=== PATIENT | female | born 1940 | race Caucasian/White ===

== ENCOUNTER 2017-01-01 23:13 | Inpatient (IN) | payer OTHER ==
--- NOTE | ~2017-01-01 | CR63 ---
[facility] A Service of [facility] RADIOLOGY TEXT RESULTS PATIENT: KITTY GASTON LOCATION: [facility] : 38 UNIT #: [id number] AGE: [address]: Scotty Rosa MD SEX: F ORDER DR: [id number] [place] [id number] [facility]. [place], [place] [address] [id number] I MR#: [id number] Acc #: [id number] NAME: KITTY GASTON. : 1940 SEX: F STUDY DATE/TIME: 01/06/2017 7:37 [facility]: [facility] STUDY DESCRIPTION: CR Chest 2 View Attending Physician: Scotty Rosa M.D. Ordering Physician: Physician Non-Staff Primary Care Physician: Manav Agosto Jr., M.D. MEDICAL IMAGING REPORT This report is preliminary unless electronic signature is present EXAM Two-view chest HISTORY Shortness of air, cough since 01/01/2017 COMPARISON 01/01/2017 FINDINGS 2 views of the chest demonstrates marked hyperinflation hyperlucency compatible with underlying emphysema. Slight blunting of both CP angles could represent a trace amount of effusion or pleural thickening. No focal airspace disease or consolidation. The heart and mediastinum unremarkable except for calcified mediastinal nodes consistent with prior granulomatous disease. Osseous structures unremarkable. IMPRESSION Moderate to severe emphysema with possible trace bilateral effusions. No focal airspace disease or consolidation. Dictated by... Kaylynn Brown M.D. THIS IS AN ELECTRONICALLY VERIFIED REPORT Kaylynn Brown M.D. at 01/06/2017 12:26 PM SAMANTHA/marta TD: 01/06/2017 09:22 JOB #: [id number] [facility] A Service of [facility] RADIOLOGY TEXT RESULTS PATIENT: KITTY GASTON LOCATION: [facility] 316 : 38 UNIT #: [id number] AGE: [address]: Scotty Rosa MD SEX: F ORDER DR: MEDICAL IMAGING REPORT Page 1 of 1 COPY
--- NOTE | ~2017-01-01 | CT57 ---
[facility] A Service of [facility] & [facility] RADIOLOGY TEXT RESULTS PATIENT: KITTY GASTON LOCATION: [facility] 316- : 38 UNIT #: [id number] AGE: [address]: Scotty Rosa MD SEX: F ORDER DR: [id number] [facility] [address] [place], [place] [address] [id number] I MR#: [id number] Acc #: [id number] NAME: KITTY GASTON. : 1940 SEX: F STUDY DATE/TIME: 01/02/2017 10:39 UNIT: C3A PCU ROOM: [facility] STUDY DESCRIPTION: CT Chest Wo Cont Attending Physician: Regis Newman M.D. Ordering Physician: Gordon Mas M.D. Primary Care Physician: Manav Agosto Jr., M.D. MEDICAL IMAGING REPORT This report is preliminary unless electronic signature is present EXAM CT chest without IV contrast COMPARISON None INDICATIONS 76-year-old female with dyspnea and cough for 1 day. History of COPD. TECHNIQUE Axial CT imaging of the chest was performed. Coronal and sagittal reformats were constructed. Lack of IV contrast limits evaluation of adenopathy, vasculature and viscera. This CT exam was performed with one or more of the following radiation dose reduction techniques: automatic control, adjustment of mA and/or kV according to patient size, and iterative reconstruction. FINDINGS There is jugular venous distension in the right lower neck. There is diffuse osteopenia. No acute fractures or suspicious osseous lesions. Imaging was performed in the expiratory phase. Airways appear widely patent. There is interlobular smooth septal thickening, most consistent with interstitial edema in the lungs. There is minimal bronchovascular ground-glass distribution opacity in the lingula and right middle lobe, however perhaps representing mildly asymmetric edema. There is a small fat-containing Bochdalek hernia in the right chest. There is normal heart size. There is trace pleural fluid in the posterior left costophrenic sulcus. No pneumothorax. There are calcified mediastinal and left hilar lymph nodes as well as a calcified granuloma seen in the left lower lobe and spleen. Detailed evaluation of the lungs is somewhat limited by motion artifact. The ground-glass attenuation seen within the lingula and right middle lobe may in part be artifactually related to motion. There is a dense calcification of the thoracic aorta extending into the STS. [facility] A Service of [facility] & [facility] RADIOLOGY TEXT RESULTS PATIENT: KITTY GASTON LOCATION: A 316-01 : 38 UNIT #: [id number] AGE: [address]: Scotty Rosa MD SEX: F ORDER DR: suprarenal abdominal aorta. There is normal caliber of the thoracic aorta and the pulmonary artery. There are a few subcentimeter AP window lymph nodes, not pathologic enlarged by CT size criteria and likely reactive. There are left-sided coronary artery calcifications. There are calcifications involving the proximal celiac, superior mesenteric and bilateral renal arteries. The left adrenal gland is diffusely calcified, consistent with prior infarct. In the right kidney there is a simple cyst versus angiomyolipoma measuring up to 1.3 cm. This does not have any evidence of acute hemorrhage. IMPRESSION 1. Jugular venous distension in the right lower neck. There is trace pleural fluid in the left posterior costophrenic sulcus. 2. There is smooth interlobular septal thickening throughout the lungs suggesting mild interstitial edema. There appear to be diffuse ground-glass opacities within the lingula and right middle lobe which may be in part artifactually related to motion or reflective of mildly asymmetric pulmonary edema. 3. Coronary artery calcifications as well as diffuse arterial calcifications within the abdomen and pelvis. 4. Diffuse calcification of the left adrenal gland consistent with remote infarct. Dictated by... Salomon Miranda M.D. THIS IS AN ELECTRONICALLY VERIFIED REPORT Salomon Miranda M.D. at 01/05/2017 12:28 AM ANNIE/rosetta TD: 01/03/2017 02:02 JOB #: [id number] MEDICAL IMAGING REPORT Page 1 of 1 COPY
--- NOTE | ~2017-01-01 | DS ---
Unit #: [id number] #: [id number] Patient: KITTY GASTON [id number] [address] [address] [id number] I MR#: [id number] NAME: KITTY GASTON. ROOM: 316 Age: 76 Sex: F Admission Date: 01/02/2017 : 1940 Discharge Date: 01/06/2017 Attending Physician: Scotty Rosa M.D. Primary Care Physician: Manav Agosto Jr., M.D. DISCHARGE SUMMARY DISCHARGE DIAGNOSES 1. Acute on chronic hypoxic respiratory failure secondary to chronic obstructive pulmonary disease and congestive heart failure. 2. Acute chronic obstructive pulmonary disease exacerbation, treated with IV Solu-Medrol and we tapered her on prednisone. 3. Acute diastolic heart failure in a newly diagnosed heart failure patient, but diuresed well, will be discharged on Lasix 40 mg orally daily. 4. Chronic iron deficiency anemia. We will be recommending iron replacement. H and H have been stable during hospitalization. 5. Diarrhea. C difficile has been negative. CONSULTANTS None. PROCEDURES None. DIAGNOSTIC STUDIES IMAGING STUDIES: Chest x-ray on 01/01/2017, impression, chronic interstitial fibrosis and scarring, probable interval progression of . No dense consolidation or effusion or pneumothorax. CT without contrast, 01/02/2017; impression, jugular venous distention in the right lower neck. Trace pleural fluid in the left posterior costophrenic sulcus, smooth interlobular septal thickening throughout the lungs consistent with mild interstitial edema and there is ground-glass opacities within the lingula and middle lobe. Coronary artery calcification as well as diffuse arterial calcifications within the abdomen and pelvis, diffuse calcification of the left adrenal gland with remote infract. CT 2 view x-ray on 01/06/2017, impression, [id number] emphysema with possible trace bilateral effusions. No focal airspace disease or consolidation. CARDIOVASCULAR STUDIES: Echo also done on 01/03/2017, summary, left ventricular size is normal. Normal left ventricular wall thickness and impaired relaxation of the grade 1 diastolic dysfunction. Globally, normal left ventricular systolic function, ejection fraction estimated at 65%. Normal right ventricular size and function. Mild mitral and tricuspid regurgitation. LABORATORY RESULTS: On the day of discharge, BMP: Glucose 149, BUN 23, creatinine 0.8, sodium 139, potassium 4.0, chloride 91, CO2 of 40, magnesium 2.8, calcium 8.4, total protein 6.9, albumin 3.7, total bilirubin 0.5, AST 46, ALT 27, alkaline phosphatase 65. CBC: WBC 8.1, Unit #: [id number] #: [id number] Patient: KITTY GASTON RBC 8.90, hemoglobin 10.6, hematocrit 33.3, MCV 85.3, MCH 27.1, MCHC 31.7, RDW 15.4, platelets 331, MPV 9.7. HOSPITAL COURSE The patient is a pleasant 76-year-old female with past medical history of chronic hypoxemic respiratory failure, who presented to the emergency department due to symptoms of shortness of breath. The patient was seen in the emergency department a day prior to admission for fever and state that since then she has had worsening of shortness of breath and cough. The patient was found in the emergency department to have a temperature of 102. She was tachypneic and placed on oxygen. First that remained stable in the low 90s. Of note, she does use oxygen at home at 2 L a minute. She denied any sick contacts at home. 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 In the emergency department, she did receive IV antibiotics and started on steroid and DuoNeb. Influenza was negative. She was admitted for acute COPD exacerbation with acute on chronic hypoxic respiratory failure. She had been receiving IV steroid, DuoNeb for her bronchodilators and mucolytics for the CHF exacerbation. We did assess the BNP, which is actually 704. it is truly difficult to appreciate peripheral edema, but she did have some jugular venous distention. CT echo was obtained with findings as noted above. We did diurese the patient with Solu-Medrol. She has been diuresing well with improvement in her symptoms of shortness of breath and dyspnea on exertion. She was seen in consultation with occupational and physical therapy who states that the patient has and the patient has been ambulating well with physical therapy. At this time, the patient is stable. She is back to oxygen at 2 L of minute. She has had much improvement of dyspnea on exertion. She is stable to be discharged home. DISCHARGE INSTRUCTIONS Follow up with primary care physician within 1 to 2 weeks. She can get a recheck on her BNP. DISCHARGE CONDITION Stable. DISCHARGE ACTIVITY Resume activities as well as prior to hospitalization with ambulating everyday as tolerated. DIET Resume a heart healthy diet. DISCHARGE MEDICATIONS Ventolin 2 puffs inhaled q.i.d. as needed for shortness of breath and/or wheezing; Symbicort 2 puffs inhaled b.i.d.; prednisone 30 mg orally for the next 3 days, 20 mg orally for the next 3 days, and 10 mg orally for the next 3 days; Tylenol 1 to 2 capsule every 4 hours as needed for headache; Spiriva inhaler 1 capsule orally daily; meclizine 25 mg orally t.i.d. as needed for dizziness; iron tablet 324 mg orally daily; Nexium 40 mg orally daily; Levaquin 750 mg orally for the next 3 days. Dictated by... Mone Gray PA-C for Pedro Flores/allen Unit #: [id number] #: [id number] Patient: KITTY GASTON TD: 01/07/2017 01:00 JOB #: [id number] DISCHARGE SUMMARY Page 1 of 1 X X DISCHARGE SUMMARY
--- NOTE | ~2017-01-01 | CR72 ---
[facility] A Service of [facility] RADIOLOGY TEXT RESULTS PATIENT: KITTY GASTON LOCATION: [facility] 316-01 : 38 UNIT #: [id number] AGE: [address]: Regis Agarwal MD SEX: F ORDER DR: [id number] [facility] [address] [place], [place] [address] [id number] I MR#: [id number] Acc #: [id number] NAME: KITTY GASTON. : 1940 SEX: F STUDY DATE/TIME: 01/01/2017 22:33 UNIT: [address] ROOM: [facility] STUDY DESCRIPTION: CR Chest Single View Portable Attending Physician: Regis Newman M.D. Ordering Physician: Arash Corley M.D. Primary Care Physician: Manav Agosto Jr., M.D. MEDICAL IMAGING REPORT This report is preliminary unless electronic signature is present EXAM Frontal chest 01/01/2017 INDICATIONS A 76-year-old female with low O2 sat, shortness of air, symptoms began today TECHNIQUE Frontal chest was performed compared with 11/08/09. FINDINGS Cardiac silhouette is within normal limits. Vascularity is unremarkable. The patient demonstrates old healed granulomatous disease and imaging features most characteristic of chronic interstitial fibrosis and scarring. Since the prior 2009 study, there has been probable interval progression of scarring and fibrosis in the mid and lower lung zones. It would be possible to exclude an element of acute infiltrate in either lower lobe particularly on the right. This should be correlated with physical exam findings. No effusion, dense consolidation or pneumothorax. IMPRESSION Chronic interstitial fibrosis and scarring. Probable interval progression of fibrosis and scarring from 2009 although possibility in the differential also includes new faint interstitial infiltrates particularly on the right. Correlate with physical exam findings. There is no dense consolidation or effusion, and no pneumothorax. Dictated by... Mynor Beltran M.D. THIS IS AN ELECTRONICALLY VERIFIED REPORT [facility] A Service of [facility] RADIOLOGY TEXT RESULTS PATIENT: KITTY GASTON LOCATION: [facility] 316-01 : 38 UNIT #: [id number] AGE: [address]: Regis Agarwal MD SEX: F ORDER DR: Mynor Beltran M.D. at 01/02/2017 10:14 PM Honey TD: 01/02/2017 12:31 JOB #: [id number] MEDICAL IMAGING REPORT Page 1 of 1 COPY
--- NOTE | ~2017-01-01 | A ---
[facility] Nutrition Therapy DATE: 01/02/17 Patient: KITTY GASTON Physician: CARMEN Address: [facility] [email or web address] Room/Bed: [address] [place] [address], Zip: [place] [address] Admit Date: 01/02/17 Date of : 38 Height: 5 2 Weight: 100 45.4 NUTRITIONAL ASSESSMENT: REASON: LOW BMI (18.3), C/S- "NUTRITION CONSULT" PATIENT ADMITTED FOR PNA AND COPD PMH: GERD, IBS, HX GASTRIC ULCER Anthropometrics: HT: 5'2", WT: 100#, BMI: 18.3, %IBW: 91 Labs: 01/02/17- GLU: 148, CA: 8.1, AST: 46 Meds: NACL, VANCOCIN, KCL, ZOSYN I/O & Bowel function: 240/-- Skin Integrity: INTACT Estimated Nutrition Needs: INCREASED 2' LOW BMI Assessment: CHART REVIEWED, EVENTS NOTED. PATIENT IS A 76 Y/O FEMALE ADMITTED FOR PNA AND COPD. PATIENT STATES SHE HAS AN OKAY APPETITE AND HER UBW IS 105-106#. PER PATIENT AND A FAMILY MEMBER AT BEDSIDE, HER 5# WEIGHT LOSS OCCURRED 2 MONTHS AGO WHEN SHE LAST HAD PNEUMONIA. SHE DRINKS ORAL NUTRITION SUPPLEMENTS AT HOME, USUALLY 1 PER DAY. SHE DOES NOT HAVE ANY C/O V/N/C/D. PATIENT IS A DAILY SMOKER AND SHE DOES NOT HAVE ANY SKIN BREAKDOWN OR EDEMA NOTED ATT. THIS RD DISCUSSED THE IMPORTANCE OF HIGH CALORIE, HIGH PROTEIN FOOD CHOICES. PATIENT DID NOT HAVE ANY NUTRITION EDUCATION QUESTIONS ATT. RECOMMEND TO CONTINUE WITH ORAL NUTRITION SUPPLEMENTATION. Dx: INADEQUATE NUTRIENT INTAKE R/T CURRENT CONDITION, PNA AEB WEIGHT LOSS, LOW BMI Intervention: 1. REGULAR DIET, 2. MEDS/FLUIDS PER MD, 3. SUPPLEMENTATION Monitoring, Evaluation and Goals: 1. ADEQUATE PO INTAKES >50% OF MEALS 2. PREVENT, CORRECT MICRO/MACRO NUTRIENT DEFICIENCIES 3. PROMOTE A STEADY WEIGHT GAIN TOWARDS A HEALTHY BMI OF 19-25, PREVENT FURTHER WEIGHT LOSS MONITOR: WEIGHTS, LABS, PO/FLUID INTAKES [facility] Nutrition Therapy DATE: 01/02/17 Patient: KITTY GASTON Physician: CARMEN Address: [address] [place], [place] [address] Room/Bed: [address] [place] [address], Zip: [place] [id number] Admit Date: 01/02/17 Date of : 38 Height: 5 2 Weight: 100 45.4 Recommendations: 1. CONTINUE WITH REGULAR DIET TOLERATED. RECOMMEND ADDING CHOCOLATE ENSURE BID WITH BREAKFAST AND LUNCH, AND CHOCOLATE MAGIC CUPS BID WITH LUNCH AND DINNER TO PROMOTE ADEQUATE KCAL AND PROTEIN INTAKE. 2. ENCOURAGE ADEQUATE PO AND FLUID INTAKES 3. OBTAIN WEIGHT ROUTINELY (EVERY 2-3 DAYS) RD TO F/U PER PROTOCOL AND PRN R/T PATIENT MILDLY COMPROMISED Respectfully, MOSES MORALES, RD, LD [employer] [facility] cc: client file
--- NOTE | ~2017-01-01 | HP ---
Unit #: [id number] #: [id number] Patient: KITTY GASTON [id number] [address] [address] [id number] I MR#: [id number] NAME: KITTY GASTON ROOM: 316 Age: 76 Sex: F Admission Date: 01/02/2017 : 1940 Attending Physician: Regis Newman M.D. Primary Care Physician: Manav Agosto Jr., M.D. HISTORY AND PHYSICAL CHIEF COMPLAINT/REASON FOR ADMISSION Shortness of breath. HISTORY OF PRESENT ILLNESS Ms. Gaston is a 76-year-old, female who presented to the emergency room complaining of 1 day of fever, worsening shortness of breath, and cough. Patient was found in the emergency room to have a temperature of 102. She was tachypneic and was immediately placed on oxygen. Her sats remained in the low 90s. She denies any sick contacts at home. The patient has a history of COPD and has not followed with any price clerk. The patient has oxygen at home that she uses at 2 liters a day and has been on it for approximately 4-6 months, according to her. In the ER, the patient received antibiotics as well as was started on steroids and DuoNebs. Influenza test was negative and this morning the patient feels with some improvement in her symptoms. She denies any nausea or vomiting. No diarrhea or constipation. She is a little sleepy this morning and does not cooperate much with the evaluation. No family is available at this time. PAST MEDICAL HISTORY Significant for COPD. ALLERGIES Sulfa and hydrocodone. FAMILY HISTORY No history of cancer or heart disease in her family. SOCIAL HISTORY The patient lives with her . She quit smoking approximately 8 years ago, but used to smoke prior to that, approximately 1-2 packs a day for several years. Drinks alcohol a little more than once a week according to her. Denies any drug use. SURGICAL HISTORY 1. Left shoulder bone spur. 2. Hysterectomy. 3. Appendectomy. 4. Left hand surgery. 5. Left knee arthroplasty. 6. Tonsillectomy. 7. Cyst removed from the left kidney. HOME MEDICATIONS Unit #: [id number] #: [id number] Patient: KITTY GASTON 1. Spiriva. 2. Ventolin. 3. Symbicort. 4. Nexium. 5. Meclizine. 6. Oxygen. REVIEW OF SYSTEMS Significant for some weight loss, but the patient does not quantify; cough; shortness of breath; generalized weakness; lightheadedness; and a decreased appetite. Otherwise, a 12-point review of systems was negative, except for what was mentioned in the HPI. PHYSICAL EXAMINATION VITAL SIGNS: Temperature on arrival to the emergency room 102.3, heart rate 107, respiratory rate 24, blood pressure 126/55, and weight 100 pounds. Currently, the patient's temperature is 98.3, heart rate 85, respiratory rate 16, blood pressure 142/74, and oxygen saturation is 95% on 3 liters of oxygen. GENERAL APPEARANCE: She is a thin, female, a little sleepy, in no acute distress with oxygen per nasal cannula. HEENT: Pupils are equal and reactive to light and accommodation. Conjunctivae are pink. Moist mucous membranes. No oral lesions. CHEST: Bibasilar crackles. CARDIOVASCULAR: Regular rate and rhythm. No murmurs. ABDOMEN: Bowel sounds are present and normal. The abdomen is soft, nontender, and nondistended. EXTREMITIES: No edema. NEURO: She is awake, alert, and oriented x3. Again, she is a little sleepy, but easily arousable. DIAGNOSTIC STUDIES LABORATORY: Lactic acid on arrival was 1. CBC showed a WBC count of 5.2, hemoglobin of 10.2, and platelets of 240. Sodium was 139, potassium 4.2, CO2 35, glucose 147, creatinine 0.8, calcium at 8.7, AST 46, and ALT 27. Otherwise, liver tests were within normal limits. ASSESSMENT AND PLAN Ms. Gaston is a 76-year-old, female with a history of COPD with 1 day of fever, shortness of breath, and cough with chest x-ray that shows bibasilar infiltrates concerning for progression of fibrosis when compared to a chest x-ray from 2010. There was also concern for, perhaps, new interstitial infiltrate on the right lower lobe. Because of these findings, the patient is now admitted to hospital. 1. Community-acquired pneumonia: Will continue with antibiotics. Patient was started on vancomycin, Zosyn, and tobramycin. Lactic acid is normal. Will follow blood cultures. Will obtain UA and cultures too. 2. Acute exacerbation of COPD: Will start the patient on DuoNebs p.r.n. and continue on scheduled Combivent as she was using at home. Will deescalate the dose of her steroids to 60 mg 3 times a day. Will restart her home regimen with Spiriva and Symbicort. 3. Malnutrition: The patient seems to be very debilitated and with some weight loss. Will get nutrition on board. 4. History of acid reflux: Will keep the patient on PPIs. 5. Concern for pulmonary fibrosis: Will get a CT scan of the chest (1) and consider pulmonary consult. Unit #: [id number] #: [id number] Patient: KITTY GASTON 6. DVT prophylaxis: Will keep the patient on Lovenox. Dictated by Pedro Masters/cheng TD: 01/02/2017 13:19 JOB #: [id number] HISTORY AND PHYSICAL Page 1 of 1 X X HISTORY AND PHYSICAL
--- NOTE | ~2017-01-01 | EKG ---
PATIENT: KITTY GASTON UNIT #: [id number] Ventricular Rate: 92 BPM Atrial Rate: 92 BPM P-R Interval: 142 ms QRS Duration: 80 ms Q-T Interval: 376 ms QTC Calculation(Bezet): 464 ms P [place]: 85 degrees Calculated R [place]: 75 degrees Calculated T [place]: 54 degrees Diagnosis Line: Sinus rhythm with Premature atrial complexes Diagnosis Line: Otherwise normal ECG Diagnosis Line: When compared with ECG of 02-JAN-2017 00:23, Diagnosis Line: (unconfirmed) Diagnosis Line: Premature atrial complexes are now Present Diagnosis Line: Confirmed by KIMBERLY MCCARTNEY MD ([id number]) on 01/04/2017 Diagnosis Line: 10:49:16 PM INTERPRETING MD: BIB WAN
[2017-01-01 22:45] LABS: POC - CKMB 1.3 ng/mL (0.0-7.9); POC - TROPONIN 0.05 ng/mL (<=0.05)
[2017-01-01 22:48] LABS: BASOPHIL% 0.9 % (0-2.5); EOSINOPHIL% 0.1 % (0.0-7.0); HEMATOCRIT 32.5 % (35.0-45.0); HEMOGLOBIN 10.2 gm/dL (12.0-16.0); LYMPHOCYTE# 1.5 X10e3 (1.0-3.5); LYMPHOCYTE% 29.6 % (17.0-45.0); MEAN CELL VOLUME 86.5 FL (83-96); MEAN CORPUSCULAR HEMOGLOBIN 27.2 PG (28-34); MEAN CORPUSCULAR HGB CONC 31.5 g/dL (30-36); MEAN PLATELET VOLUME 9.6 FL (6.5-11.5); MONOCYTE# 0.5 X10e3 (0-1.0); MONOCYTE% 9.1 % (3.0-12.0); NEUTROPHIL# 3.1 X10e3 (1.5-7.1); NEUTROPHIL% 60.3 % (40-75); PLATELET COUNT 240 X10e3 (140-420); RED BLOOD COUNT 3.76 X10e (3.90-5.30); RED CELL DISTRIBUTION WIDTH 15.4 % (11.0-15.5); WHITE BLOOD COUNT 5.2 X10e3 (4.0-10.5)
[2017-01-01 22:53] LABS: DIFF IND NO
[2017-01-01 23:02] LABS: PARTIAL THROMBOPLASTIN TIME 25.2 SECONDS (23.5-31.3); PROTHROMBIN TIME (PATIENT) 10.5 SECONDS (9.6-11.5)
[2017-01-01 23:10] LABS: ALBUMIN SERUM 3.7 g/dL (3.5-5.0); BILIRUBIN, DIRECT 0.1 mg/dL (0.0-0.2); BILIRUBIN,INDIRECT 0.4 mg/dL (0.0-0.9); BILIRUBIN,TOTAL 0.5 mg/dL (0.2-2.0); BUN/CREATININE RATIO 16.25; CALCIUM SERUM 8.7 mg/dL (8.4-10.2); CREATININE SERUM 0.8 mg/dL (0.6-1.4); GLOM FILT RATE Estimated 70.7 mL/min (>60); POTASSIUM 4.2 mmol/L (3.5-5.1); PROTEIN TOTAL SERUM 6.9 g/dL (6.0-8.3)
[2017-01-01 23:11] LABS: INFLUENZA A NEG (NEG); INFLUENZA B NEG (NEG)
[~2017-01-01 23:13] MED LIST: ACETAMINOPHEN PO; ACETAMINOPHEN500 M2 PO; ALBUTEROL 0.5ML INH; ALBUTEROL INHALER; ALBUTEROL17 GM INH; ATIVAN PO; BONIVA150 MG PO; BROVANA15 MCG/2 M IH; IBUPROFEN; MOTION RELIEF25 MG PO; NEXIUM; NEXIUM PO; OXYGEN; SPIRIVA18 MCG INH; SPIRIVA18 MCG PO; SYMBICORT INH; TRAMADOL HCL50 M1 PO; ULTRAM PO; UNKNOWN PAIN MED; [UNRECOGNIZED DRUG - OTHER]; [UNRECOGNIZED DRUG - REMARK]
[2017-01-02 00:49] LABS: POC - CKMB <1.0 ng/mL (0.0-7.9); POC - TROPONIN 0.05 ng/mL (<=0.05)
[2017-01-02 02:21] LABS: BASOPHIL% 0.5 % (0-2.5); EOSINOPHIL% 0.1 % (0.0-7.0); HEMATOCRIT 30.1 % (35.0-45.0); HEMOGLOBIN 9.5 gm/dL (12.0-16.0); LYMPHOCYTE# 1.4 X10e3 (1.0-3.5); LYMPHOCYTE% 25.1 % (17.0-45.0); MEAN CELL VOLUME 86.2 FL (83-96); MEAN CORPUSCULAR HEMOGLOBIN 27.2 PG (28-34); MEAN CORPUSCULAR HGB CONC 31.5 g/dL (30-36); MEAN PLATELET VOLUME 9.4 FL (6.5-11.5); MONOCYTE# 0.1 X10e3 (0-1.0); MONOCYTE% 2.5 % (3.0-12.0); NEUTROPHIL# 3.9 X10e3 (1.5-7.1); NEUTROPHIL% 71.8 % (40-75); PLATELET COUNT 215 X10e3 (140-420); RED BLOOD COUNT 3.49 X10e (3.90-5.30); RED CELL DISTRIBUTION WIDTH 15.3 % (11.0-15.5); WHITE BLOOD COUNT 5.4 X10e3 (4.0-10.5)
[2017-01-02 02:23] LABS: DIFF IND NO
[2017-01-02 02:56] LABS: BUN/CREATININE RATIO 15.55; CALCIUM SERUM 8.1 mg/dL (8.4-10.2); CREATININE SERUM 0.9 mg/dL (0.6-1.4); GLOM FILT RATE Estimated 61.3 mL/min (>60); POTASSIUM 4.1 mmol/L (3.5-5.1)
[2017-01-02 20:28] LABS: URINE SOURCE CLEAN CATCH
[2017-01-02 20:48] LABS: URINE APPEARANCE CLEAR; URINE BILIRUBIN NEG (NEG); URINE BLOOD NEG (NEG); URINE COLOR YELLOW; URINE GLUCOSE NEG (NEG); URINE KETONE NEG (NEG); URINE LEUKOCYTE ESTERASE NEG (NEG); URINE NITRATE NEG (NEG); URINE PH 5.5 (5-8); URINE PROTEIN TRACE (NEG); URINE SPECIFIC GRAVITY 1.021 (1.003-1.035); URINE UROBILINOGEN 0.2 MG/DL (NEG)
[2017-01-03 06:04] LABS: HEMATOCRIT 28.4 % (35.0-45.0); HEMOGLOBIN 8.8 gm/dL (12.0-16.0); MEAN CORPUSCULAR HEMOGLOBIN 27.1 PG (28-34); MEAN CORPUSCULAR HGB CONC 31.1 g/dL (30-36); RED BLOOD COUNT 3.26 X10e (3.90-5.30); RED CELL DISTRIBUTION WIDTH 15.5 % (11.0-15.5)
[2017-01-03 06:18] LABS: WHITE BLOOD COUNT 8.5 X10e3 (4.0-10.5)
[2017-01-03 06:31] LABS: BUN/CREATININE RATIO 23.75; CALCIUM SERUM 7.7 mg/dL (8.4-10.2); CREATININE SERUM 0.8 mg/dL (0.6-1.4); GLOM FILT RATE Estimated 70.7 mL/min (>60); POTASSIUM 4.5 mmol/L (3.5-5.1)
[2017-01-04 06:39] LABS: DIFF IND NO; HEMATOCRIT 30.4 % (35.0-45.0); HEMOGLOBIN 9.6 gm/dL (12.0-16.0); LYMPHOCYTE# 1.1 X10e3 (1.0-3.5); LYMPHOCYTE% 9.7 % (17.0-45.0); MEAN CELL VOLUME 85.9 FL (83-96); MEAN CORPUSCULAR HEMOGLOBIN 27.2 PG (28-34); MEAN CORPUSCULAR HGB CONC 31.6 g/dL (30-36); MEAN PLATELET VOLUME 9.6 FL (6.5-11.5); MONOCYTE# 0.8 X10e3 (0-1.0); MONOCYTE% 7.4 % (3.0-12.0); NEUTROPHIL% 82.9 % (40-75); PLATELET COUNT 304 X10e3 (140-420); RED BLOOD COUNT 3.53 X10e (3.90-5.30); RED CELL DISTRIBUTION WIDTH 15.9 % (11.0-15.5); RETICULOCYTE 1.5 % (0.5-2.8); WHITE BLOOD COUNT 10.9 X10e3 (4.0-10.5)
[2017-01-04 07:28] LABS: BUN/CREATININE RATIO 21.25; CALCIUM SERUM 8.5 mg/dL (8.4-10.2); CREATININE SERUM 0.8 mg/dL (0.6-1.4); GLOM FILT RATE Estimated 70.7 mL/min (>60); MAGNESIUM 1.7 mg/dL (1.6-3.0); POTASSIUM 4.5 mmol/L (3.5-5.1)
[2017-01-04 07:40] LABS: FERRITIN 153 ng/mL (11-307)
[2017-01-05 08:11] LABS: HEMATOCRIT 33.7 % (35.0-45.0); HEMOGLOBIN 10.5 gm/dL (12.0-16.0); MEAN CELL VOLUME 86.6 FL (83-96); MEAN CORPUSCULAR HEMOGLOBIN 26.9 PG (28-34); MEAN CORPUSCULAR HGB CONC 31.1 g/dL (30-36); MEAN PLATELET VOLUME 9.6 FL (6.5-11.5); RED BLOOD COUNT 3.89 X10e (3.90-5.30); RED CELL DISTRIBUTION WIDTH 15.9 % (11.0-15.5); WHITE BLOOD COUNT 8.5 X10e3 (4.0-10.5)
[2017-01-05 09:01] LABS: CALCIUM SERUM 8.4 mg/dL (8.4-10.2); CREATININE SERUM 0.8 mg/dL (0.6-1.4); GLOM FILT RATE Estimated 70.7 mL/min (>60); MAGNESIUM 1.4 mg/dL (1.6-3.0); POTASSIUM 3.1 mmol/L (3.5-5.1)
[2017-01-06 05:15] LABS: HEMATOCRIT 33.3 % (35.0-45.0); HEMOGLOBIN 10.6 gm/dL (12.0-16.0); MEAN CELL VOLUME 85.3 FL (83-96); MEAN CORPUSCULAR HEMOGLOBIN 27.1 PG (28-34); MEAN CORPUSCULAR HGB CONC 31.7 g/dL (30-36); MEAN PLATELET VOLUME 9.7 FL (6.5-11.5); RED BLOOD COUNT 3.9 X10e (3.90-5.30); RED CELL DISTRIBUTION WIDTH 15.4 % (11.0-15.5); WHITE BLOOD COUNT 8.1 X10e3 (4.0-10.5)
[2017-01-06 06:11] LABS: BUN/CREATININE RATIO 28.75; CALCIUM SERUM 8.4 mg/dL (8.4-10.2); CREATININE SERUM 0.8 mg/dL (0.6-1.4); GLOM FILT RATE Estimated 70.7 mL/min (>60); MAGNESIUM 2.8 mg/dL (1.6-3.0)
[2017-01-06] MEDS ORDERED: FERROUS GL324 ( 36 ) PO (17:01)
[2017-01-06] MEDS ORDERED: LEVAQUIN750 M1 PO (17:02)
[2017-01-06] MEDS ORDERED: LASIX PO (17:04)
[2017-01-06] MEDS ORDERED: PREDNISONE10 MG/DOSE (17:04)
== END 2017-01-06 16:30 | disposition home or self-care (01) | DRG 291 ==
LOC: CED 23:13 → CEDOF 01-02 01:49 → C3A PCU 01-02 02:56
PROVIDERS: Emergency Medicine; Internal Medicine; Physician Assistant Medical
PROC: B246YZZ Ultrasonography of Right and Left Heart using Other Contrast (ICD-10-PCS; principal; 2017-01-03)
DX: I50.33 Acute on chronic diastolic (congestive) heart failure (principal); J96.21 Acute and chronic respiratory failure with hypoxia; J18.9 Pneumonia, unspecified organism; E46 Unspecified protein-calorie malnutrition; J44.1 Chronic obstructive pulmonary disease with (acute) exacerbation; Z68.1 Body mass index [BMI] 19.9 or less, adult; D50.9 Iron deficiency anemia, unspecified; R19.7 Diarrhea, unspecified; Z90.710 Acquired absence of both cervix and uterus; K21.9 Gastro-esophageal reflux disease without esophagitis; Z87.891 Personal history of nicotine dependence; Z96.652 Presence of left artificial knee joint
CPT/HCPCS: 36415; 71010; 71020; 71250; 80048; 80076; 80202; 81003; 82553; 82607; 82728; 83540; 83550; 83605; 83735; 83880; 84484; 85025; 85027; 85044; 85610; 85730; 87040; 87045; 87086; 87427; 87493; 87804; 87899; 93005; 93306; 94640; 94760; 96374; 97110; 97116; 97161; 97165; 97530; 97535; 99285; G8978-GP; G8979-GP; G8980-GP; G8987-GO; G8988-GO; J1650; J1940; J2543; J2920; J2930; J3260; J3370; J3475

== ENCOUNTER 2017-01-19 19:07 | Inpatient (IN) | payer MEDICARE, OTHER ==
--- NOTE | ~2017-01-19 | CR72 ---
[facility] A Service of [facility] RADIOLOGY TEXT RESULTS PATIENT: KITTY GASTON LOCATION: [facility] 56- : 38 UNIT #: [id number] AGE: [address]: Katherine Mcgee MD SEX: F ORDER DR: [id number] [facility] [address] [place], [place] [address] [id number] I MR#: [id number] Acc #: [id number] NAME: KITTY GASTON. : 1940 SEX: F STUDY DATE/TIME: 01/19/2017 19:11 UNIT: [facility] ROOM: [facility] STUDY DESCRIPTION: CR Chest Single View Portable Attending Physician: Jayda Sampson M.D. Ordering Physician: Lety Sanchez M.D. Primary Care Physician: Manav Agosto Jr., M.D. MEDICAL IMAGING REPORT This report is preliminary unless electronic signature is present EXAM Portable chest HISTORY Shortness of air, weakness times 4 days. COMPARISON 01/06/2017 FINDINGS A portable view of the chest demonstrates pulmonary hyperinflation hyperlucency compatible underlying emphysema. Hilar and parenchymal calcifications suggest old granulomas disease. Heart, great vessels bony thorax unremarkable for age. Overall emphysema but no acute findings Dictated by... Kaylynn Brown M.D. THIS IS AN ELECTRONICALLY VERIFIED REPORT Kaylynn Brown M.D. at 01/20/2017 3:33 PM Keith TD: 01/20/2017 07:04 JOB #: [id number] MEDICAL IMAGING REPORT Page 1 of 1 COPY
--- NOTE | ~2017-01-19 | CO ---
Unit #: [id number] #: [id number] Patient: KITTY GASTON [id number] [address] [place], [place] [address] [id number] I MR#: [id number] NAME: KITTY GASTON. ROOM: 562 Age: 76 Sex: F Admission Date: 01/19/2017 : 1940 Attending Physician: Katherine Mcgee M.D. Primary Care Physician: Manav Agosto Jr., M.D. Consultation Date: 01/21/2017 CONSULTATION REPORT BRIEF SUMMARY The patient is a 76-year-old white female with severe COPD, who was admitted with respiratory problems. She states over the past year or two, she has had significant weight loss and apparently lost approximately 30 pounds weight over the past couple of months. She has been in and out of the hospital with her pulmonary problems. She states that she has had some nausea with occasional vomiting and also has been anorexic at times. She is on prednisone as well as multiple other medications for her pulmonary problems. She had upper and lower endoscopy by Dr. Sharif gamez over 2 years ago and was noted to have on colonoscopy, a normal scope. On upper endoscopy, she was noted to have a small hiatal hernia and mild esophagitis. PAST MEDICAL HISTORY She has had a known past history for COPD, gastroesophageal reflux disease, and heart disease. She has had a known history for left shoulder surgery, colonoscopy and EGD as noted above, hysterectomy, appendectomy, left hand surgery, left knee surgery, tonsillectomy, and a cyst removed from the kidney. ALLERGIES She is allergic to sulfa and hydrocodone. MEDICATIONS She is on several medications including Zyrtec, iron sulfate, Lasix, oxygen per nasal cannula, Symbicort, Spiriva, Ventolin, Nexium, Levaquin, prednisone which was recently finished, and meclizine. FAMILY HISTORY Noncontributory. SOCIAL HISTORY The patient is . Lives at home with family. She is a nonsmoker. Nondrinker. REVIEW OF SYSTEMS Twelve system review has been performed, which is not remarkable except for that noted in the present illness. IMMUNIZATIONS Up-to-date. PHYSICAL EXAMINATION VITAL SIGNS: The patient is afebrile. Vital signs normal. Unit #: [id number] #: [id number] Patient: KITTY GASTON GENERAL: The patient is a well-developed thin 76-year-old white female, in no acute distress. HEENT: Not remarkable. NECK: Supple. CHEST: There is equal bilateral expansion with the use of intercostal muscles for breathing and increased AP diameter compatible with moderate to severe COPD. The lung sounds are clear, but distant in the in the bases. HEART: Regular rhythm. ABDOMEN: Soft, nontender, benign without palpable mass or organomegaly. There is no gross abdominal distention. No guarding or rebound. Active bowel sounds present. No evidence of ascites or hernias. EXTREMITIES: Full range of motion without limitation. No evidence of any peripheral edema. BACK: There is no CVA tenderness. NEUROLOGIC: Grossly intact. DIAGNOSTIC STUDIES IMAGING STUDIES: CT scan on this admission not remarkable. LABORATORY RESULTS: Laboratory values basically not remarkable. BUN was mildly elevated. IMPRESSION The patient has severe chronic obstructive pulmonary disease and cardiac disease along with weight loss possibly on the basis of her anorexia, which she has at this time upper endoscopy and possibly we will start her on Megace if indicated. Dictated by... Rodrigo Tadeo Jr., M.D. SANDER/allen TD: 01/22/2017 03:34 JOB #: [id number] CONSULTATION REPORT Page 1 of 1 X Rodrigo Tadeo MD X CONSULTATION REPORT
--- NOTE | ~2017-01-19 | DS ---
Unit #: [id number] #: [id number] Patient: KITTY GASTON [id number] [address] [place], [place] [address] [id number] I MR#: [id number] NAME: KITTY GASTON. ROOM: 562 Age: 76 Sex: F Admission Date: 01/19/2017 : 1940 Discharge Date: 01/22/2017 Attending Physician: Katherine Mcgee M.D. Primary Care Physician: Manav Agosto Jr., M.D. DISCHARGE SUMMARY DISCHARGE DIAGNOSES 1. Acute on chronic hypoxic respiratory failure, resolved. The patient is back to her oxygen at 2 liters a minute. 2. Acute chronic obstructive pulmonary disease exacerbation, on steroid orally. 3. Acute kidney injury due to Lasix usage, resolved. 4. Odynophagia, weight loss and increased carcinoembryonic antigen at 4.7. CA19-9 is pending. Seen by [facility]. The patient is having an esophagogastroduodenoscopy today. Results and recommendations pending per the esophagogastroduodenoscopy outcome. 5. History of diastolic heart failure. The patient had an echocardiogram last month with an ejection fraction of 65% with mild mitral regurgitation and tricuspid regurgitation, grade 1 diastolic dysfunction. The patient was not able to tolerate Lasix 40 milligrams orally daily; therefore, it will be changed to as needed. 6. Gastroesophageal reflux disease. 7. Chronic sinusitis. 8. Hypomagnesemia. CONSULTANTS 1. Dr. Kelsey of pulmonary. 2. Dr. Tadeo with [facility]. PROCEDURES The patient had an EGD on 01/22/2017. Please refer to the full dictated procedure note for further details. DIAGNOSTIC STUDIES IMAGING: Chest x-ray on 01/19/17. Findings - Hyperinflation, hyperlucency compatible with emphysema but no acute findings. Head CT on 01/19/17. Impression - No acute intracranial abnormality identified. Generalized atrophy with evidence of chronic microvascular disease. CT chest without contrast on 01/19/17. Impression - Severe emphysema. No acute intrathoracic abnormality identified. CT abdomen and pelvis, 01/20/17. Impression - No acute findings. No evidence of abdominal or pelvic malignancy. LABS: On day of discharge the patient's labs include BMP with glucose of 101, BUN 27, creatinine 0.8, sodium 144, potassium 4.1, chloride 95, CO2 39, calcium 9.1. CBC - WBC of 11.8, RBC 3.39, hemoglobin 9.2, hematocrit Unit #: [id number] #: [id number] Patient: KITTY GASTON H 29.7, MCV 87.7, MCH 27.2, MCHC 31, RDW 16.8, platelets 268, MPV 9.9. MICROBIOLOGY: Blood culture - No growth. HOSPITAL COURSE The patient is a pleasant 76-year-old female with past medical history of chronic hypoxic respiratory failure dependent on oxygen, COPD, GERD, mild diastolic dysfunction. Presented to the emergency department due to symptoms of shortness of breath and oxygen being in the 70s in her physician's office. She was admitted from 01/02 through 01/06 for respiratory failure, COPD exacerbation and diastolic dysfunction with evidence of congestive heart failure. She had an echo at that time that revealed grade 1 diastolic dysfunction with an ejection fraction of 65%. She was discharged on Levaquin. She states after a couple days of feeling better being at home she started to have symptoms of weakness, lightheadedness and felt that she was having to use more strength to breath. When she went to the office of her primary care physician, Dr. Manav Agosto, to followup the hospitalization, the patient states that her oxygenation was no more than 70% in his office. Therefore, she was referred to the emergency department for further care. In the emergency department an ABG was done, which showed the patient had hypercapnia, hypoxia, respiratory failure. She was given bronchodilators, IV Solu-Medrol and was placed back on BiPAP. Afterward, diagnostic workup revealed that the patient's BUN was elevated at 35, and creatinine was elevated at 1.4. She was admitted for acute hypoxic respiratory failure, COPD exacerbation and acute kidney injury. She was hydrated, Lasix was stopped, and she had improvement in her symptoms. She also complained of nausea, odynophagia and weight loss over the past couple weeks. She is known to [facility]; therefore, [facility] was consulted. CEA was elevated at 4.9. CA19-[address] abdomen and pelvis was done with no findings of malignancy. She will have an EGD with [facility] today. If findings are unremarkable, she may be discharged home to follow up with [facility] on an as-needed basis and to follow up with her primary care physician in 2 weeks. For her acute on chronic COPD and hypoxic, hypercapnic respiratory failure, needing transient BiPAP, Dr. Kelsey of pulmonary was consulted. At this time, he has recommended that the patient be discharged home with Lasix 40 mg for the next 5 days, as well as to be discharged with Zithromax and inhaled MDI. He will follow up with the patient in his office for any further pulmonary workup. DISCHARGE CONDITION Stable if deemed cleared by surgery after endoscopy. DISCHARGE DISPOSITION To home with continued home health via [facility] DISCHARGE ACTIVITY Nonrestricted. Patient is to ambulate every day as was prior to hospitalization as tolerated. DISCHARGE DIET Heart healthy diet. DISCHARGE MEDICINES Unit #: [id number] #: [id number] Patient: KITTY GASTON 1. Ventolin 2 puffs inhaled q.i.d. as needed for shortness of breath. 2. Symbicort 160 mcg 2 puffs inhaled b.i.d. 3. Prednisone 40 mg orally daily for the next 5 days. 4. Tylenol 650 mg q.4 hours orally as needed for pain. 5. Fluticasone nasal spray 2 puffs to each naris daily at bedtime. 6. Spiriva 1 capsule inhaled daily. 7. Lasix 40 mg orally daily as needed for increasing swelling of lower extremities or dyspnea despite inhaled nebulizers. 8. Iron supplement 324 mg orally daily. 9. Also recommend MiraLAX 17 grams orally daily. 10. Zithromax 250 mg orally daily until January 24. 11. Magnesium oxide 400 mg orally b.i.d. A prescription for 7 days was given. DISCHARGE FOLLOWUP She can follow up with a BMP and magnesium at followup with her family physician. Dictated by... Mone Gray PA-C for Pedro Becker/tiffanie TD: 01/25/2017 12:41 JOB #: [id number] DISCHARGE SUMMARY Page 1 of 1 X X DISCHARGE SUMMARY
--- NOTE | ~2017-01-19 | CT4 ---
[facility] A Service of [facility] RADIOLOGY TEXT RESULTS PATIENT: KITTY GASTON LOCATION: [facility] : 38 UNIT #: [id number] AGE: [address]: Katherine Mcgee MD SEX: F ORDER DR: [id number] [facility] [address]. [place], [place] [address] [id number] I MR#: [id number] Acc #: [id number] NAME: KITTY GASTON. : 1940 SEX: F STUDY DATE/TIME: 01/20/2017 10:36 UNIT: C5B ROOM: [facility] STUDY DESCRIPTION: CT Abd and Pelv Wo Cont Attending Physician: Katherine Mcgee M.D. Ordering Physician: Katherine Mcgee M.D. Primary Care Physician: Manav Agosto Jr., M.D. MEDICAL IMAGING REPORT This report is preliminary unless electronic signature is present EXAM CT abdomen and pelvis without contrast INDICATIONS Unexplained weight loss of 20 pounds over the past 8-10 weeks. Left-sided abdominal pain for the past week. PROCEDURE Unenhanced CT of the abdomen and pelvis The CT exam was performed with one or more of the following radiation dose reduction techniques: automatic exposure control, adjustment of mA and/or kV according to patient size, and iterative reconstruction. COMPARISON 06/23/07 FINDINGS Abdomen without contrast: Emphysema in the lung basis. The liver, spleen, pancreas, gallbladder, have an unremarkable unenhanced appearance. Dense calcifications in the left adrenal gland are unchanged. There is a 11 mm cyst in the left kidney. Bowel loops are nondilated. Pelvis without contrast: Previous hysterectomy. No pelvic mass or fluid. No aggressive appearing bone lesion. IMPRESSION 1. No acute findings. 2. No evidence for abdominal or pelvic malignancy. [facility] A Service [facility] RADIOLOGY TEXT RESULTS PATIENT: KITTY GASTON LOCATION: [facility] : 38 UNIT #: [id number] AGE: [address]: Katherine Mcgee MD SEX: F ORDER DR: Dictated by... Acosta Hawk M.D. THIS IS AN ELECTRONICALLY VERIFIED REPORT Acosta Hawk M.D. at 01/21/2017 6:51 AM WIL/marta TD: 01/20/2017 13:06 JOB #: [id number] MEDICAL IMAGING REPORT Page 1 of 1 COPY
--- NOTE | ~2017-01-19 | CT71 ---
[facility] A Service of [facility] RADIOLOGY TEXT RESULTS PATIENT: KITTY GASTON LOCATION: [facility] : 38 UNIT #: [id number] AGE: [address]: Katherine Mcgee MD SEX: F ORDER DR: [id number] [facility] [address] [place], [place] [address] [id number] I MR#: [id number] Acc #: [id number] NAME: KITTY GASTON. : 1940 SEX: F STUDY DATE/TIME: 01/19/2017 20:34 UNIT: [facility] ROOM: [facility] STUDY DESCRIPTION: CT Head Wo Contrast Attending Physician: Jayda Sampson M.D. Ordering Physician: Lety Sanchez M.D. Primary Care Physician: Manav Agosto Jr., M.D. MEDICAL IMAGING REPORT This report is preliminary unless electronic signature is present EXAM Noncontrast head CT. HISTORY Shortness of air, dyspnea, dizziness x1 week. COMPARISON Head CT 07/13/2013. This CT exam was performed with one or more of the following radiation dose reduction techniques: automatic exposure control, adjustment of mA and/or kV according to patient size, and iterative reconstruction. FINDINGS Axial noncontrast imaging of the brain demonstrates generalized atrophy. Decreased attenuation of the periventricular white matter may reflect chronic microvascular disease. No large vessel infarct. No mass, mass effect or midline shift. No hemorrhage or abnormal extraaxial fluid collections. Bony calvarium, skull base, mastoids unremarkable. Visualized sinuses unremarkable. IMPRESSION No acute intracranial abnormality identified. Generalized atrophy with evidence of chronic microvascular disease. Dictated by... Kaylynn Brown M.D. THIS IS AN ELECTRONICALLY VERIFIED REPORT Kaylynn Brown M.D. at 01/20/2017 3:33 PM SAMANTHA/meli [facility] A Service of [facility] RADIOLOGY TEXT RESULTS PATIENT: KITTY GASTON LOCATION: [facility] : 38 UNIT #: [id number] AGE: [address]: Katherine Mcgee MD SEX: F ORDER DR: TD: 01/20/2017 07:51 JOB #: [id number] MEDICAL IMAGING REPORT Page 1 of 1 COPY
--- NOTE | ~2017-01-19 | EKG ---
PATIENT: KITTY GASTON UNIT #: [id number] Ventricular Rate: 89 BPM Atrial Rate: 89 BPM P-R Interval: 122 ms QRS Duration: 82 ms Q-T Interval: 390 ms QTC Calculation(Bezet): 474 ms P [place]: 87 degrees Calculated R [place]: 85 degrees Calculated T [place]: 87 degrees Diagnosis Line: Sinus rhythm with Premature supraventricular Diagnosis Line: complexes Diagnosis Line: Right atrial enlargement Diagnosis Line: Borderline ECG Diagnosis Line: When compared with ECG of 02-JAN-2017 00:24, Diagnosis Line: No significant change was found Diagnosis Line: Confirmed by JANI OLIVO MD ([id number]) on 01/19/2017 Diagnosis Line: 10:39:32 PM INTERPRETING MD: GEOVANI WAN
--- NOTE | ~2017-01-19 | HP ---
Unit #: [id number] #: [id number] Patient: KITTY GASTON [id number] [facility]. [place], [place] [address] [id number] I MR#: [id number] NAME: KITTY GASTON. ROOM: 03758 Age: 76 Sex: F Admission Date: 01/19/2017 : 1940 Attending Physician: Jayda Sampson M.D. Primary Care Physician: Manav Agosto Jr., M.D. HISTORY AND PHYSICAL CHIEF COMPLAINT COPD exacerbation with acute and chronic respiratory failure. HISTORY This pleasant 76-year-old female with O2 dependent COPD, GERD, mild diastolic dysfunction noted on echo, is readmitted for COPD exacerbation. The patient was recently admitted to this facility 01/02/2017 through 01/06/2017 for respiratory failure, COPD exacerbation, and diastolic dysfunction with evidence of congestive heart failure. She states she was breathing easier at the time of discharge. Her steroids have been tapered off and she is finished with her Levaquin. Has, however, been quite anorexic, not eating much, and then more recently increasingly short of breath with bronchospasm. Has chronic head congestion with chronic yellow sinus drainage, which is unchanged but denies cough with the above. She was taken to Dr. Manav Agosto's office today and was noted to be hypoxic with O2 sats in the 80% despite her usual 2 L of oxygen and somewhat somnolent I believe. She was brought to this emergency department where her initial O2 saturation was 89% on 3 L of oxygen. Her ABG showed a compensated hypercapnic hypoxic respiratory failure. She was given bronchodilators and initially placed on BiPAP. She now is awake and alert and breathing easier. On examination she does have end expiratory wheeze and rhonchi with a few crackles at the bases. Prior to transfer she was also given an IM injection of Solu-Medrol. In reviewing her labs she appears to be a bit dehydrated. States that the iron tablets recently started causing anorexia. PAST MEDICAL HISTORY 1. COPD on 2 L of oxygen. 2. Echo performed last month revealing ejection fraction 65% with mild MR and TR, grade 1 diastolic dysfunction. 3. GERD. 4. Very mild anemia. I reviewed her labs and iron stores and actually looked to be normal last admission. 5. Colonoscopy 08/2014, which was negative. An EGD was also performed revealing hiatal hernia, mild esophagitis. 6. Left shoulder bone spur surgery. 7. Hysterectomy. 8. Appendectomy. 9. Left hand surgery. 10. Left knee arthroplasty. 11. Tonsillectomy. 12. Cyst removed from the left kidney, which was benign. Unit #: [id number] #: [id number] Patient: KITTY GASTON H ALLERGIES Sulfa and hydrocodone. HOME MEDICATIONS Zyrtec 10 mg daily; iron sulfate 324 mg daily; Lasix 40 mg daily; oxygen 2 L per nasal cannula; Symbicort; Spiriva; Ventolin; Nexium 40 mg daily. Patient recently finished a course of Levaquin and prednisone. Takes meclizine p.r.n. but has not taken this recently. FAMILY HISTORY Negative for cancer or heart disease. SOCIAL HISTORY The patient lives with her and son. She started smoking at age 15, smoked 1-2 packs per day of tobacco until age 68 when she stopped smoking. Seldom drinks alcohol. REVIEW OF SYSTEMS Notable for recent fatigue, anorexia, chronic head congestion, diastolic dysfunction, anemia, GERD, COPD, above mentioned surgeries. All other systems were reviewed and are otherwise negative. PHYSICAL EXAMINATION GENERAL: Pleasant, thin, 76-year-old female currently in no acute distress. VITAL SIGNS: Temperature 98.9, pulse 105, respirations 20, blood pressure 120/50, O2 saturation was 89% on 3 L of oxygen, but currently is 95% on 2.5 L. HEENT: Eyes - PERRLA. Extraocular muscles are intact. Pharynx is benign. NECK: Supple without adenopathy or thyromegaly. No JVD noted. CHEST: With a few crackles at the bases. End expiratory wheeze and rhonchi noted. CARDIAC: Normal S1 and S2 without definite murmur. ABDOMEN: Bowel sounds are present. No hepatosplenomegaly, tenderness, or masses. EXTREMITIES: Without edema. Pedal pulses are present. NEUROLOGIC: Patient is awake, alert, and oriented. Cranial nerves are intact. Equal strength throughout. DIAGNOSTIC STUDIES ADMISSION LABS: Hematocrit 34.2, which is improved. Normal white count and platelet count. SMA 12 - glucose 116, BUN 35, potassium 3.1, chloride 86, CO2 44. ABG - pH 7.44, pCO2 67, pO2 78.7, O2 saturation 92.7% on 3 L of oxygen. Negative cardiac markers. Normal BNP. Urinalysis - trace leukocyte esterase with 2-5 white cells, 2-5 red cells and no bacteria. IMAGING STUDIES: Head CT - generalized atrophy, small vessel ischemic disease. Chest x-ray - COPD, old granulomatous disease, chest CTA, severe emphysema only. CARDIOLOGY STUDIES: EKG - sinus rhythm, rate 90, acute pulmonale pattern. Occasional APC noted. ASSESSMENT 1. COPD exacerbation with acute on chronic hypercapnic, hypoxic Unit #: [id number] #: [id number] Patient: KITTY GASTON respiratory failure. Patient is, however, compensated. She has a normal pH. CTA only revealed COPD. 2. History of diastolic dysfunction with ejection fraction of 65%. No CHF at present. 3. GERD. 4. Mild dehydration secondary to anorexia and Lasix. 5. Chronic sinus drainage. PLANS 1. Patient will need a longer steroid taper. Continue Symbicort and add Humibid LA, continue with bronchodilators. 2. Nasal saline and Flonase nasal spray. 3. Gentle hydration tonight. When Lasix is restarted would only start at 20 mg a day. 4. DVT prophylaxis. 5. Will discontinue iron sulfate as this is causing anorexia. 1. Dictated by Pedro Medina/rosmery TD: 01/20/2017 04:58 JOB #: [id number] HISTORY AND PHYSICAL Page 1 of 1 X Jayda Sampson MD X HISTORY AND PHYSICAL
--- NOTE | ~2017-01-19 | CT57 ---
[facility] A Service of [facility] RADIOLOGY TEXT RESULTS PATIENT: KITTY GASTON LOCATION: [facility] : 38 UNIT #: [id number] AGE: [address]: Katherine Mcgee MD SEX: F ORDER DR: [id number] [facility] [address] [place], [place] [address] [id number] I MR#: [id number] Acc #: [id number] NAME: KITTY GASTON. : 1940 SEX: F STUDY DATE/TIME: 01/19/2017 20:36 UNIT: [facility] ROOM: [facility] STUDY DESCRIPTION: CT Chest Wo Cont Attending Physician: Jayda Sampson M.D. Ordering Physician: Lety Sanchez M.D. Primary Care Physician: Manav Agosto Jr., M.D. MEDICAL IMAGING REPORT This report is preliminary unless electronic signature is present EXAM CT chest without contrast HISTORY Shortness of air, dyspnea, dizziness x1 week. TECHNIQUE This CT exam was performed with one or more of the following radiation dose reduction techniques: automatic exposure control, adjustment of mA and/or kV according to patient size, and iterative reconstruction. FINDINGS Axial images were performed through the chest without contrast. Multiplanar reconstructed images reviewed at a workstation. The examination demonstrates severe emphysema. No acute airspace disease or consolidation. No effusions. No mass lesions identified. Extensive mediastinal and hilar calcifications are noted compatible with granulomatous disease. Heart size within normal limits. Aorta demonstrates atherosclerotic changes. No aneurysm. Pulmonary arteries unremarkable. Upper abdomen unremarkable except for a nonobstructing left renal stone. Osseous structures and thoracic inlet unremarkable. IMPRESSION Severe emphysema. No acute intrathoracic abnormality identified. Dictated by... Kaylynn Brown M.D. THIS IS AN ELECTRONICALLY VERIFIED REPORT Kaylynn Brown M.D. at 01/20/2017 3:33 PM Tong TD: 01/20/2017 07:56 [facility] A Service of [facility] RADIOLOGY TEXT RESULTS PATIENT: KITTY GASTON LOCATION: [facility] 562-01 : 38 UNIT #: [id number] AGE: [address]: Katherine Mcgee MD SEX: F ORDER DR: JOB #: [id number] MEDICAL IMAGING REPORT Page 1 of 1 COPY
--- NOTE | ~2017-01-19 | A ---
[facility] Nutrition Therapy DATE: 01/20/17 Patient: KITTY GASTON Physician: SOBIA Address: [facility] [address] Room/Bed: [address] [place] [address], Zip: [place] [address] Admit Date: 01/19/17 Date of : 38 Height: 5 2 Weight: 93 42.2 NUTRITIONAL ASSESSMENT: REASON: Low BMI 76 yo female admitted for COPD exacerbation with acute and chronic respiratory failure PMH: COPD, GERD, mild diastolic dysfunction Anthropometrics: Ht: 5'2" Wt: 42.3 kg (93#) BMI: 17.1 PAULINO: 110#, 85% IBW Labs: Cl- 91, BUN 29, Ca++ 8.3, GFR 48.1 Meds: Protonix, Solu-medrol, Zofran I/O & Bowel function: 360/251, last BM 01/19 Skin Integrity: Bruise BUE, no edema noted Estimated Nutrition Needs: Increased d/t low BMI, wt loss Assessment: Chart reviewed, events noted. RD internal grinder tender visited with pt and pt's today. Pt reported recent wt loss d/t recently having pneumonia twice, pt unable to report amount and time frame. Pt reported decreased appetite over the past week d/t nausea and constipation. Pt reported RN is providing medicine to help with constipation. Pt stated not liking Ensure shakes, but brings in Boost shakes. RD internal grinder tender encouraged magic cups, pt agreed. RD internal grinder tender encouraged adequate calorie/protein intake. See recommendations below. Dx: Inadequate protein-energy intake RT PMH, clinical condition AEB 17.1 BMI, 85% IBW, wt loss. Intervention: 1. Magic cup BID 2. Healthy heart diet Monitoring, Evaluation and Goals: 1. PO intake; consume >75% of meals and supplements 2. Weight; prevent unintentional weight loss, promote gradual weight gain 3. GI; promote regular GI function Recommendations: 1. Please order chocolate magic cup BID w/ meals. [facility] Nutrition Therapy DATE: 01/20/17 Patient: KITTY GASTON Physician: SOBIA Address: [address] Room/Bed: [address] [place] [address], Zip: [place] [address] Admit Date: 01/19/17 Date of : 38 Height: 5 2 Weight: 93 42.2 2. Appreciate family and staff to encourage adequate calorie/protein intake. 3. If PO intake <50%, suggest changing diet order to regular to promote gradual weight gain towards healthy BMI. Pt is at a mild nutritional risk. RD will f/u per protocol. Respectfully, Suly Centeno, Wheel Presser Albert Mendoza MS, RD, LD [facility] cc: client file
--- NOTE | ~2017-01-19 | OR ---
Unit #: [id number] #: [id number] Patient: KITTY GASTON [id number] [address] [address] [id number] MR#: [id number] NAME: KITTY GASTON ROOM: 562 Date of Procedure: 01/22/2017 Admission Date: 01/19/2017 Surgeon: Rodrigo Tadeo Jr., M.D. : 1940 Attending Physician: Katherine Mcgee M.D. Primary Care Physician: Manav Agosto Jr., M.D. OPERATIVE REPORT INDICATIONS FOR PROCEDURE The patient is a 76-year-old white female, who has had problems with nausea, vomiting, and some weight loss. She also has chronic diarrhea. It was felt that the patient should have upper endoscopy to rule out occult ulcer disease and also that she probably will need to be on some Megace to increase her appetite. PREOPERATIVE DIAGNOSES Weight loss, anorexia, nausea, and vomiting, rule out occult ulcer disease. POSTOPERATIVE DIAGNOSIS Normal upper endoscopy. ANESTHESIA MAC anesthesia. PROCEDURE PERFORMED Flexible fiberoptic esophagogastroduodenoscopy. DESCRIPTION OF PROCEDURE The patient was positioned in Carranza position with left side down. After being given MAC anesthesia, the Olympus XQ scope was passed through the proximal esophagus. Entire esophagus was examined. There was no evidence of any esophagitis and no evidence of any stenosis. The scope was advanced through the GE junction, the cardia, and down to the fundic and antral region of the stomach and retroflexed back up to the area of the cardia. There was no evidence of any hiatal hernia present. The stomach distended well without evidence of rigidity. No evidence of any gastric ulcer disease. The scope was advanced down the prepyloric region through the pylorus and the duodenal bulb and down to the second portion of the duodenum. The entire duodenal portion examination was within normal limits. The scope was slowly removed. The patient tolerated the procedure well and discharged in satisfactory condition. Dictated by... Rodrigo Tadeo Jr., M.D. JMB/allen TD: 01/23/2017 00:49 Unit #: [id number] #: [id number] Patient: ANTONIETA GASTONIA Rosalind JOB #: [id number] OPERATIVE REPORT Page 1 of 1 X Rodrigo Tadeo MD PROCEDURE OPERATIVE NOTE
--- NOTE | ~2017-01-19 | CO ---
Unit #: [id number] #: [id number] Patient: KITTY GASTON [id number] [address] [place], [place] [address] [id number] MR#: [id number] NAME: KITTY GASTON. ROOM: 562 Age: 76 Sex: F Admission Date: 01/19/2017 : 1940 Attending Physician: Katherine Mcgee M.D. Primary Care Physician: Manav Agosto Jr., M.D. Consultation Date: 01/20/2017 CONSULTATION REPORT REASON FOR CONSULTATION COPD, respiratory failure. HISTORY OF PRESENT ILLNESS This 76-year-old female, who has advanced emphysema and chronic respiratory failure - on 2-3 liters nasal cannula oxygen at home, presents with increasing shortness of breath. She apparently was admitted to this institution last month, discharged approximately 2 weeks ago. She was in for COPD exacerbation, treated, improved but had worsening symptoms. Her history is somewhat vague and unreliable. Her shortness of breath has improved. She denies chest pain, hemoptysis, wheezing, sputum production, fever. There is also a question of some anorexia, and she has undergone evaluation, including a CT scan of the chest and abdomen. CT abdomen report is pending. PAST MEDICAL HISTORY Past medical history is remarkable for COPD - on 2 liters of oxygen, diastolic dysfunction with normal left ventricular systolic function, gastroesophageal reflux, anemia. MEDICATIONS AT HOME She really could not identify what medications she is on, as far as her inhaled medicines. According to the dictated report, she is on Symbicort, Spiriva and Ventolin inhaler. Other medications include iron, Zyrtec, Lasix, Nexium and oxygen. She completed a course of prednisone and Levaquin. ALLERGIES Sulfa and hydrocodone. SOCIAL HISTORY Quit smoking in 2011 but smoked almost 60 years or more prior to that. FAMILY HISTORY No definite familial lung disease. REVIEW OF SYSTEMS She denied abdominal pain, melena, hematochezia, hematemesis, hematuria, dysuria, focal weakness, paresthesias, leg pain, swelling, chest pain, palpitations, dysphagia, odynophagia, coughing with swallowing, etc. I do think her history could be unreliable. PHYSICAL EXAMINATION GENERAL: Examination reveals a thin patient who is in no acute distress. Unit #: [id number] #: [id number] Patient: KITTY GASTON She was oriented. She told me where she was. VITAL SIGNS: She is afebrile. Pulse 92, respiratory rate 24, blood pressure 109/51. She is 5'2", 93 pounds. BMI is 17. HEENT: Pupils equal, round and reactive to light. Sclerae anicteric. Head atraumatic. Mucous membranes moist. She has dentures in place. NECK: Supple. No supraclavicular or cervical adenopathy appreciated. CHEST: Markedly decreased breath sounds. Prolonged expiratory phase. No get wheeze or consolidation. CARDIAC: Examination reveals a regular rate and rhythm. No definite pathologic murmur, rub or gallop. ABDOMEN: Abdomen is soft, nontender. No hepatomegaly or rebound. EXTREMITIES: Extremities reveal no clubbing, cyanosis or edema. No calf tenderness. SKIN: Warm and dry without rash or diaphoresis. NEUROLOGIC: Seemed intact with no gross muscular or sensory deficits noted. DIAGNOSTIC STUDIES LABORATORY EXAMINATION: Arterial blood gases - pH of 7.45, pCO2 of 67, pO2 of 78 on 3 liters. Her BUN is 29, creatinine 1.1. BNP 90. Lactic acid 1. INR normal. Cardiac enzymes normal. White blood cell count 5.8, hemoglobin 10.4, platelet count 223. Flu screen negative. Urinalysis - Leukocyte esterase trace, 2-5 white cells, 2-5 red cells. Blood cultures performed and are pending. No urine sent. IMAGING: Chest x-ray, CT scan revealed severe emphysema. No acute infiltrates. CARDIOVASCULAR: EKG - Sinus rhythm. Some PACs. Right atrial hypertrophy. IMPRESSION 1. Severe emphysema with exacerbation. 2. Acute on chronic hypoxemic respiratory failure. 3. Chronic hypercapnia secondary to her severe, advanced COPD, suspect FEV1 less than 1 liter. 4. Anorexia. 5. Suspect some degree of cor pulmonale. 6. Gastroesophageal reflux. 7. Diastolic dysfunction. PLAN Clinically, she is improved. Will continue current therapy. I suspect we can change to oral steroids in the morning. I will add antibiotics for this acute exacerbation of her chronic bronchitis. I would continue her Symbicort, Spiriva and albuterol at home. If she does not have a nebulizer at home, I would consider obtaining one. Consider outpatient PFTs or at least bedside spirometry in the office. Once rapport has been established, will discuss resuscitation status. Thank you very much for allowing me to participate in the care of Ms. Gaston. Dictated by... Mario Kelsey M.D. AMISHA/tiffanie Unit #: [id number] #: [id number] Patient: KITTY GASTON TD: 01/21/2017 10:02 JOB #: [id number] CONSULTATION REPORT Page 1 of 1 X Mario Kelsey MD CONSULTATION REPORT
[~2017-01-19 19:07] MED LIST changes: +FERROUS GL324 ( 36 ) PO; +LASIX PO; +LEVAQUIN750 M1 PO; +PREDNISONE10 MG/DOSE
[2017-01-19 19:30] LABS: ARTERIAL BLD GAS O2 SATURATION 92.7 % (90.0-100.0); ARTERIAL BLOOD GAS CARBOXY HB 1.3 %sat (0.0-9.0); ARTERIAL BLOOD GAS HCO3 46.4 mmol/L; ARTERIAL BLOOD GAS MET HB 0.9 %sat (0.0-2.0); ARTERIAL BLOOD GAS pH 7.447 (7.350-7.450)
[2017-01-19 19:31] LABS: ARTERIAL BLOOD GAS PCO2 67.4 mmHg (35.0-45.0); ARTERIAL BLOOD GAS PO2 78.7 mmHg (80.0-100)
[2017-01-19 19:32] LABS: ARTERIAL BLOOD GAS ALLEN TEST NORMAL; ARTERIAL BLOOD GAS ART SITE LEFT RADIAL; ARTERIAL BLOOD GAS DELIVERY NASAL CANNULA; ARTERIAL DRAW? YES
[2017-01-19 20:00] LABS: BASOPHIL# 0.1 X10e3 (0-0.3); BASOPHIL% 1.2 % (0-2.5); EOSINOPHIL# 0.2 X10e3 (0-0.7); EOSINOPHIL% 2.8 % (0.0-7.0); HEMATOCRIT 34.2 % (35.0-45.0); HEMOGLOBIN 10.8 gm/dL (12.0-16.0); LYMPHOCYTE# 1.2 X10e3 (1.0-3.5); LYMPHOCYTE% 16.9 % (17.0-45.0); MEAN CELL VOLUME 85.9 FL (83-96); MEAN CORPUSCULAR HEMOGLOBIN 27.2 PG (28-34); MEAN CORPUSCULAR HGB CONC 31.6 g/dL (30-36); MEAN PLATELET VOLUME 10.2 FL (6.5-11.5); MONOCYTE# 0.9 X10e3 (0-1.0); MONOCYTE% 13.3 % (3.0-12.0); NEUTROPHIL# 4.7 X10e3 (1.5-7.1); NEUTROPHIL% 65.8 % (40-75); PLATELET COUNT 241 X10e3 (140-420); RED BLOOD COUNT 3.98 X10e (3.90-5.30); RED CELL DISTRIBUTION WIDTH 15.8 % (11.0-15.5); WHITE BLOOD COUNT 7.1 X10e3 (4.0-10.5)
[2017-01-19 20:04] LABS: PARTIAL THROMBOPLASTIN TIME 26.3 SECONDS (23.5-31.3)
[2017-01-19 20:07] LABS: DIFF IND NO
[2017-01-19 20:18] LABS: ALBUMIN SERUM 3.6 g/dL (3.5-5.0); BILIRUBIN, DIRECT 0.1 mg/dL (0.0-0.2); BILIRUBIN,INDIRECT 0.7 mg/dL (0.0-0.9); BILIRUBIN,TOTAL 0.8 mg/dL (0.2-2.0); CALCIUM SERUM 8.8 mg/dL (8.4-10.2); CREATININE SERUM 1.4 mg/dL (0.6-1.4); GLOM FILT RATE Estimated 35.9 mL/min (>60); MAGNESIUM 1.6 mg/dL (1.6-3.0); POTASSIUM 3.1 mmol/L (3.5-5.1)
[2017-01-19 21:16] LABS: POC - CKMB 1.1 ng/mL (0.0-7.9); POC - TROPONIN <0.05 ng/mL (<=0.05)
[2017-01-19 21:55] LABS: URINE SOURCE CLEAN CATCH
[2017-01-19 22:09] LABS: URINE APPEARANCE CLEAR; URINE BILIRUBIN NEG (NEG); URINE BLOOD NEG (NEG); URINE COLOR YELLOW; URINE GLUCOSE NEG (NEG); URINE KETONE NEG (NEG); URINE LEUKOCYTE ESTERASE TRACE (NEG); URINE NITRATE NEG (NEG); URINE PROTEIN NEG (NEG); URINE SPECIFIC GRAVITY 1.012 (1.003-1.035); URINE UROBILINOGEN 0.2 MG/DL (NEG)
[2017-01-19 22:12] LABS: URINE BACTERIA AUWI NEG (NEGATIVE); URINE SQUAMOUS EPITHELIAL CELL NONE SEEN /[HPF]
[2017-01-19 22:26] LABS: CULTURE INDICATED? NO
[2017-01-19 22:56] LABS: INFLUENZA A NEG (NEG); INFLUENZA B NEG (NEG)
[2017-01-20] MEDS ORDERED: SYMBICORT INH (01:23)
[2017-01-20] MEDS ORDERED: FLONASE 0.05% N16 G1 (01:24)
[2017-01-20] MEDS ORDERED: TYL325 PO (01:24)
[2017-01-20 04:04] LABS: BASOPHIL# 0.1 X10e3 (0-0.3); BASOPHIL% 1.4 % (0-2.5); DIFF IND NO; EOSINOPHIL# 0.2 X10e3 (0-0.7); EOSINOPHIL% 3.9 % (0.0-7.0); HEMOGLOBIN 10.4 gm/dL (12.0-16.0); LYMPHOCYTE# 1.3 X10e3 (1.0-3.5); MEAN CELL VOLUME 85.8 FL (83-96); MEAN CORPUSCULAR HEMOGLOBIN 27.1 PG (28-34); MEAN CORPUSCULAR HGB CONC 31.6 g/dL (30-36); MEAN PLATELET VOLUME 9.3 FL (6.5-11.5); MONOCYTE# 0.9 X10e3 (0-1.0); MONOCYTE% 16.3 % (3.0-12.0); NEUTROPHIL# 3.2 X10e3 (1.5-7.1); NEUTROPHIL% 55.4 % (40-75); PLATELET COUNT 223 X10e3 (140-420); RED BLOOD COUNT 3.84 X10e (3.90-5.30); RED CELL DISTRIBUTION WIDTH 15.8 % (11.0-15.5); WHITE BLOOD COUNT 5.8 X10e3 (4.0-10.5)
[2017-01-20 04:38] LABS: BUN/CREATININE RATIO 26.36; CALCIUM SERUM 8.3 mg/dL (8.4-10.2); CREATININE SERUM 1.1 mg/dL (0.6-1.4); GLOM FILT RATE Estimated 48.1 mL/min (>60); POTASSIUM 3.8 mmol/L (3.5-5.1)
[2017-01-21 05:45] LABS: HEMATOCRIT 31.5 % (35.0-45.0); HEMOGLOBIN 9.9 gm/dL (12.0-16.0); MEAN CELL VOLUME 86.3 FL (83-96); MEAN CORPUSCULAR HEMOGLOBIN 27.2 PG (28-34); MEAN CORPUSCULAR HGB CONC 31.5 g/dL (30-36); MEAN PLATELET VOLUME 9.5 FL (6.5-11.5); RED BLOOD COUNT 3.65 X10e (3.90-5.30); RED CELL DISTRIBUTION WIDTH 16.2 % (11.0-15.5)
[2017-01-21 05:55] LABS: WHITE BLOOD COUNT 9.3 X10e3 (4.0-10.5)
[2017-01-21 06:13] LABS: BUN/CREATININE RATIO 26.66; CALCIUM SERUM 8.9 mg/dL (8.4-10.2); CREATININE SERUM 0.9 mg/dL (0.6-1.4); GLOM FILT RATE Estimated 61.3 mL/min (>60); POTASSIUM 3.8 mmol/L (3.5-5.1)
[2017-01-22 06:45] LABS: HEMATOCRIT 29.7 % (35.0-45.0); HEMOGLOBIN 9.2 gm/dL (12.0-16.0); MEAN CELL VOLUME 87.7 FL (83-96); MEAN CORPUSCULAR HEMOGLOBIN 27.2 PG (28-34); MEAN PLATELET VOLUME 9.9 FL (6.5-11.5); RED BLOOD COUNT 3.39 X10e (3.90-5.30); RED CELL DISTRIBUTION WIDTH 16.8 % (11.0-15.5); WHITE BLOOD COUNT 11.8 X10e3 (4.0-10.5)
[2017-01-22 07:18] LABS: BUN/CREATININE RATIO 33.75; CALCIUM SERUM 9.2 mg/dL (8.4-10.2); CREATININE SERUM 0.8 mg/dL (0.6-1.4); GLOM FILT RATE Estimated 70.7 mL/min (>60); POTASSIUM 4.1 mmol/L (3.5-5.1)
[2017-01-22] MEDS ORDERED: IRON PO (17:11)
[2017-01-22] MEDS ORDERED: MIRALAX17 GM PO (17:12)
[2017-01-22] MEDS ORDERED: MAG-OX 400400 MG PO (17:13)
[2017-01-22] MEDS ORDERED: AZITHROMYCIN250 MG PO (17:13)
[2017-01-22] MEDS ORDERED: PREDNISONE PO (17:23)
== END 2017-01-22 17:44 | disposition home or self-care (01) | DRG 189 ==
LOC: CED 19:07 → CEDOF 22:50 → C5B 01-20 06:26
PROVIDERS: Family Medicine; Internal Medicine; Student in an Organized Health Care Education/Training Program; Surgery
PROC: 0DJ08ZZ Inspection of Upper Intestinal Tract, Via Natural or Artificial Opening Endoscopic (ICD-10-PCS; principal; 2017-01-22 14:36)
DX: J96.21 Acute and chronic respiratory failure with hypoxia (principal); N17.9 Acute kidney failure, unspecified; I50.32 Chronic diastolic (congestive) heart failure; I27.81 Cor pulmonale (chronic); J44.1 Chronic obstructive pulmonary disease with (acute) exacerbation; E83.42 Hypomagnesemia; Z68.1 Body mass index [BMI] 19.9 or less, adult; J96.22 Acute and chronic respiratory failure with hypercapnia; J32.8 Other chronic sinusitis; Z87.891 Personal history of nicotine dependence; R13.10 Dysphagia, unspecified; K21.9 Gastro-esophageal reflux disease without esophagitis; K52.9 Noninfective gastroenteritis and colitis, unspecified; R11.2 Nausea with vomiting, unspecified; R63.4 Abnormal weight loss; R63.0 Anorexia; Z99.81 Dependence on supplemental oxygen; Z90.710 Acquired absence of both cervix and uterus; Z96.652 Presence of left artificial knee joint; E86.0 Dehydration; Z88.5 Allergy status to narcotic agent; Z88.2 Allergy status to sulfonamides; D64.9 Anemia, unspecified
CPT/HCPCS: 36415; 36600; 70450; 71010; 71250; 74176; 80048; 80076; 81003; 82378; 82553; 82607; 82803; 83605; 83735; 83880; 84484; 85025; 85027; 85610; 85730; 86301; 87040; 87804; 93005; 94640; 94660; 94760; 99291; C9113; J2920